=== PATIENT | male | born 1950 | race Two or more races ===

== ENCOUNTER 2025-05-15 01:03 | Emergency (ER) | payer OTHER ==
[~2025-05-15] VITALS: Ht 185.4 cm; Wt 77.3 kg
--- NOTE | 2025-05-15 01:31 | ECG ---
[facility] Test Date: 2025-05-15 Test Time: 01:29:54 Pat Name: SUAD BORJA Department: Room: Gender: M District Resource Officer: EVELINE : 1950 Requested By: MAKENZIE MELÉNDEZ Order Number: [id number] Reading MD: Measurements Intervals Douglas Rate: 104 P: 51 VA: 183 QRS: -50 QRSD: 145 T: 110 QT: 377 QTc: 496 Interpretive Statements Sinus tachycardia Left bundle branch block Please click the below link to view image of tracing.
[2025-05-15 01:41] LABS: Hemoglobin 13.4 g/dL (13.5-17.5); Mean Corpuscular Hemoglobin 26.5 pg (28.0-32.0); Nucleated Red Blood Cells % 0.1 %
[2025-05-15 01:42] LABS: Hematocrit 39.8 % (41.0-53.0); Mean Corpuscular Volume 78.9 fL (80.0-100.0)
--- NOTE | 2025-05-15 01:42 | ED.PDOC ---
History of Present Illness HPI Comments 74-year-old male who came to ER for headaches. History of hypertension, admits that he did not take his amlodipine and metoprolol earlier tonight. About an hour ago, he developed right sided frontal headaches, pounding, non radiating. Noted his SBP was >160 (normal was 120's). Also complaining of mild chest pressure/ discomfort. Patient admits that he took Sildenafil earlier. Denies any blurring of vision, dizziness or slurring of speech. REVIEW OF SYSTEMS: General: No fever, no chills, or fatigue HEENT: No sore throat, no earache, no congestion, no neck pain. Cardiac: No chest pain. No palpitations. Lungs: No shortness of breath, no cough. GI: No nausea, no vomiting, no diarrhea, no constipation, no abdominal pain : No dysuria, frequency, or urgency. No hematuria. Musculoskeletal: No joint pain , no joint swelling, no extremity edema. Skin: No rash, no itching. Neuro: (+) headache, no dizziness, no weakness EXAM: General: Awake, alert and oriented. No acute distress. Skin: Skin in warm, dry and intact. Appropriate color for ethnicity. HEENT: The head is normocephalic and atraumatic. Conjunctivae are clear without exudates or hemorrhage. Sclera is non-icteric. EOM are intact. No signs of nystagmus. Eyelids are normal in appearance without swelling or lesions. Oral mucosa is pink and moist Neck: The neck is supple with normal range of motion. No JVD. Cardiac: Heart rate and rhythm are normal. No murmurs, gallops, or rubs are auscultated. Respiratory: No signs of respiratory distress. Lung sounds are clear in all lobes bilaterally without rales, rhonchi, or wheezes. Abdominal: Abdomen is soft, non-tender without distention. Bowel sounds are present and normoactive in all four quadrants. Extremities: Upper and lower extremities are atraumatic in appearance without deformity or edema. Neurological: The patient is awake, alert and oriented to person, place, and time with normal speech. Speech is clear. There is no facial asymmetry. Normal [id number] test. Normal gait. Psychiatric: Appropriate mood and affect. Good judgement and insight Chief Complaint: Headache Time Seen by MD: 01:42 Reviewed Notes: Nurses Notes Allergies: Coded Allergies: Codeine (Verified Allergy, Unknown, 05/15/25) Information Source: Patient Mode of Arrival: Ambulatory Past Medical History PAST MEDICAL HISTORY: HTN Surgical History: Denies all surgeries Family History Family History: Reviewed,noncontributory to illness Social History Smoker: Non-Smoker Alcohol: Denies ETOH Use Drugs: Denies Drug Use Lives In: Home Was a procedure done? Was a procedure done?: No EKG EKG : Pulse Rate (adult): 104 Cardiac Rhythm: ST Block: LBBB Differential Dx Considerations may include: Hypertensive urgency, migraine head aches, anxiety X-Ray, Labs, Meds, VS Vital Signs Date Time Temp Pulse Resp B/P (MAP) Pulse Ox O2 Delivery O2 Flow Rate FiO2 05/15/25 03:22 98.3 77 18 149/81 (103) 96 98.3 05/15/25 01:42 104 05/15/25 01:29 104 05/15/25 01:03 98.5 117 20 148/83 94 98.5 Lab Test 05/15/25 02:14 05/15/25 01:24 Range/Units Troponin I High Sensitivity 6 4 </=54 ng/L White Blood Count 6.3 4.4-10.8 10^3/uL Red Blood Count 5.04 4.5-5.90 10^6/uL Hemoglobin 13.4 L 13.5-17.5 g/dL Hematocrit 39.8 L 41.0-53.0 % Mean Corpuscular Volume 78.9 L 80.0-100.0 fL Mean Corpuscular Hemoglobin 26.5 L 28.0-32.0 pg Mean Corpuscular Hemoglobin Concent 33.6 32.0-36.0 g/dL Red Cell Distribution Width 14.4 H 11.8-14.3 % Platelet Count 204 140-450 10^3/uL Mean Platelet Volume 7.7 6.9-10.8 fL Neutrophils (%) (Auto) 47.6 37.0-80.0 % Lymphocytes (%) (Auto) 40.5 10.0-50.0 % Monocytes (%) (Auto) 7.6 0.0-12.0 % Eosinophils (%) (Auto) 3.9 0.0-7.0 % Basophils (%) (Auto) 0.4 0.0-2.0 % Neutrophils # (Auto) 3.0 1.6-8.6 10 ^3/uL Lymphocytes # (Auto) 2.5 0.4-5.4 10 ^3/uL Monocytes # (Auto) 0.5 0-1.3 10 ^3/uL Eosinophils # (Auto) 0.2 0-0.8 10 ^3/uL Basophils # (Auto) 0 0-0.2 10 ^3/uL Nucleated Red Blood Cells 0.1 % Sodium Level 140 136-145 mmol/L Potassium Level 3.8 3.5-5.1 mmol/L Chloride Level 104 98-107 mmol/L Carbon Dioxide Level 25 20-31 mmol/L Anion Gap 11 5-15 Blood Urea Nitrogen 17 9-23 mg/dL Creatinine 1.49 H 0.700-1.30 mg/dL Glomerular Filtration Rate Calc 49 >90 mL/min BUN/Creatinine Ratio 11.4 10.0-20.0 Serum Glucose 178 H 74-106 mg/dL Calcium Level 9.2 8.7-10.4 mg/dL B-Type Natriuretic Peptide 25.60 0-100 pg/mL CHEST RADIOGRAPH Indication: cp Technique: Single frontal view of the chest was obtained COMPARISON: None FINDINGS: Dual lead left chest wall pacing device with lead tips superimposed over the right atrium and right ventricle. Cardiac silhouette is enlarged. Diffuse prominence of the pulmonary vasculature. No focal airspace disease. No pleural effusions. Bones and soft tissues demonstrate no significant abnormality. IMPRESSION: Cardiomegaly with pulmonary venous congestion. Time of 1ST Reevaluation: 01:38 Reevaluation 1ST: Unchanged Patient Education/Counseling: Other Family Education/Counseling: No Family Present SEPSIS Sepsis Screen Date sepsis recognized/suspect: May 15, 2025 Time Sepsis recognized/suspect: 0103 Recent Procedure: No On Antibiotic Therapy: No Respiratory Rate >20: No Heart Rate >90: Yes Temp<36 C (96.8 F) or >38.3 C: No SBP <90 or MAP <65 mmHG: No New Acute Mental Status Change: No Is the patient on CPAP, BIPAP,: No Physician Orders Chest Xray 1 View (05/15/25 01:16) Vital Signs Q1HR (05/15/25 01:12) Saline Lock (05/15/25 01:12) Metal Buffer (05/15/25 ) Electrocardigram (05/15/25 02:12) Electrocardigram (05/15/25 04:12) Troponin-I Hs (05/15/25 04:12) Check Pulse And Bp Q1hr (05/15/25 03:00) Vital Signs Date Time Temp Pulse Resp B/P (MAP) Pulse Ox O2 Delivery O2 Flow Rate FiO2 05/15/25 03:22 98.3 77 18 149/81 (103) 96 98.3 05/15/25 01:42 104 05/15/25 01:29 104 05/15/25 01:03 98.5 117 20 148/83 94 98.5 Laboratory Tests Test 05/15/25 01:24 White Blood Count 6.3 10^3/uL (4.4-10.8) Departure 1 Departure Time of Disposition: 05:39 Impression: Primary Impression: Eloped from emergency department Additional Impression: Headache Disposition: 07 LEFT AWOL/ELOPED Condition: Other Comments Patient was seen and evaluation. He eloped from ED prior to discussing results and re-evaluation. Critical Care Note Critical Care Time?: No Stability Stability form required: No Heart Score Heart Score: Heart Score Response (Comments) Value History Slightly Suspicious 0 EKG Repolarization Disturb 1 Age >65 2 Risk Factors 1 or 2 risk factors 1 Troponin Normal limit 0 Total 4 I personally scribed for MAKENZIE MELÉNDEZ MD ([email or web address]) on 05/15/25 at 01:42. Electronically submitted by Dalton Marlow ([facility]). I personally scribed for MAKENZIE MELÉNDEZ MD ([email or web address]) on 05/15/25 at 03:56. Electronically submitted by Dalton Marlow ([facility]). MAKENZIE MELÉNDEZ MD May 15, 2025 01:42
[2025-05-15 01:44] LABS: Chloride 104 mmol/L (98-107); Potassium 3.8 mmol/L (3.5-5.1); Sodium 140 mmol/L (136-145)
[2025-05-15 01:45] LABS: Anion Gap 11 (5-15); Calcium 9.2 mg/dL (8.7-10.4); Carbon Dioxide 25 mmol/L (20-31)
[2025-05-15 01:50] LABS: BUN/Creatinine Ratio 11.4 (10.0-20.0); Blood Urea Nitrogen 17 mg/dL (9-23); Glucose 178 mg/dL (74-106)
--- NOTE | 2025-05-15 01:54 | DVH ---
CHEST RADIOGRAPH Indication: cp Technique: Single frontal view of the chest was obtained COMPARISON: None FINDINGS: Dual lead left chest wall pacing device with lead tips superimposed over the right atrium and right v entricle. Cardiac silhouette is enlarged. Diffuse prominence of the pulmonary vasculature. No focal airspace di sease. No pleural effusions. Bones and soft tissues demonstrate no significant abnormality. IMPRESSION: Cardiomegaly with pulmonary venous congestion.
[2025-05-15 03:22] VITALS: BP 149/81; PULSE 77; RESP 18; TEMP 98.3; O2SAT 96
== END 2025-05-15 05:57 | disposition left against medical advice (07) ==
LOC: ER 01:03
DX: R51.9 Headache, unspecified (principal); R07.89 Other chest pain; I10 Essential (primary) hypertension; Z88.5 Allergy status to narcotic agent; Z79.899 Other long term (current) drug therapy
CPT/HCPCS: 36415; 71045; 80048; 83880; 84484; 85025; 93005